=== PATIENT | female | born 1980 | race Caucasian/White ===

== ENCOUNTER → 2022-10-10 18:41 | Outpatient (CLI) | payer OTHER, SELFPAY ==
--- NOTE | 2022-10-10 | DI.MRI.S_ITS ---
PROCEDURE: MR FOOT RT WO CON INDICATIONS: BONE CYST/ PAIN TECHNIQUE: Noncontrast sagittal T1 spin echo and T2 fast spin echo with fat saturation, long-axis T1 spin echo and T2 fast spin echo with fat saturation, short-axis T1 spin echo and T2 fast spin echo with fat saturation through the forefoot. COMPARISON: None. FINDINGS: Image quality: Excellent. Bones and joints: There is mild midfoot and forefoot joint osteoarthritis with joint space narrowing, subchondral sclerosis . Nonspecific subcortical cystic changes are noted involving 5th metatarsal head, medial and lateral sesamoid bones of 1st metatarsal head and adjacent plantar aspect of 1st metatarsal head. Edema involving medial sesamoid bone of 1st metatarsal head is seen. No definite fracture line is seen. No new metatarsal stress fractures. No suspicious bony lesions. Soft tissues: The visualized plantar foot muscles demonstrate normal signal and bulk. Visualized flexor and extensor tendons appear intact, without tenosynovitis. The distal insertions of the peroneus brevis and longus tendons appear intact. The principal Lisfranc ligament appears intact. No soft tissue ganglion cysts or bursal fluid collections. Sagittal images demonstrate moderate grade partial-thickness tear involving medial sesamoid phalangeal ligament of 1st metatarsal head . No gross plantar plate tear in 2nd through 5th toes. IMPRESSION: 1. Midfoot and forefoot joint osteoarthritis. No acute fracture or dislocation. Nonspecific subcortical cystic changes involving 1st and 5th metatarsal head and sesamoid bones of 1st metatarsal head. 2. Mild edema involving medial sesamoid of 1st metatarsal head without discrete fracture line concerning for sesamoiditis. There is also low to moderate grade partial-thickness tear involving medial sesamoid phalangeal ligament of 1st MTP joint concerning for low to moderate grade turf toe injury. 3. Extensor and flexor tendons of midfoot and forefoot are intact. No soft tissue mass or drainable fluid collection. Lisfranc ligament is intact. Dictated by: Walter Cordero M.D. on 10/13/2022 at 10:25 Approved by: Walter Cordero M.D. on 10/13/2022 at 10:44
--- NOTE | 2022-10-10 | DI.MRI.S_ITS ---
PROCEDURE: MR ANKLE RT WO CON INDICATIONS: BONE CYST/ PAIN TECHNIQUE: Noncontrast sagittal T1 spin echo and T2 fast spin echo with fat saturation, axial proton density fast spin echo and T2 fast spin echo with fat saturation, coronal T1 spin echo and T2 fast spin echo with fat saturation through the ankle/hindfoot. COMPARISON: None. FINDINGS: Image quality: Excellent. Bones and joints: Mild midfoot and hindfoot joint osteoarthritic changes are seen with joint space narrowing and subchondral sclerosis No bone marrow contusions or fractures. No hindfoot coalitions. No osteochondral injuries of the talar dome. Small amount of tibiotalar joint effusion is seen, no gross loose bodies. Medial structures: The posterior tibialis tendon is thickened with small to moderate amount of fluid distending tendon sheath at the level of mid to distal talus and talonavicular joint. The flexor digitorum longus, and flexor hallucis longus tendons are intact. The posterior tibial neurovascular bundle appears normal within the tarsal tunnel, without extrinsic mass effect. The deltoid ligament and spring ligament are thickened. Lateral structures: The anterior talofibular ligament is thickened. The calcaneofibular, and posterior talofibular ligaments appear intact. More superiorly, the anterior and posterior tibiofibular ligaments appear thickened. The tibiofibular syndesmosis is normal in width at 2 mm or less. The peroneus longus and brevis tendons are thickened at the level of lateral malleolus extending to the level of mid to distal calcaneus. Adjacent bony peroneal tubercle and retrotrochlear prominence are normal in size. The sinus tarsi demonstrates normal fatty signal, without edema, fibrosis, or cyst formation. Visualized sinus tarsi components (cervical ligament, interosseous talocalcaneal ligament, roots of the inferior extensor retinaculum) appear normal. The calcaneonavicular and calcaneocuboid components of the bifurcate ligament appear intact. The dorsal calcaneocuboid ligament appears intact. Anterior structures: The tibialis anterior, extensor hallucis longus, and extensor digitorum longus tendons appear intact. The dorsal talonavicular ligament appears intact. Posterior and plantar structures: Achilles tendon is intact. Medial and lateral bands of the plantar fascia are of normal thickness. No abductor digiti quinti muscle atrophy to suggest Solitario neuropathy. IMPRESSION: 1. Mild midfoot and hindfoot joint osteoarthritis. No fracture or dislocation. No osteochondral injuries of talar dome. Small amount of tibiotalar joint effusion, no gross loose bodies. 2. Low to moderate grade tenosynovitis involving posterior tibialis tendon at the level of mid to distal talus and talonavicular joint. 3. Low-grade medial ankle ligament sprain. 4. Low to moderate grade sprain involving anterior talofibular ligament, anterior posterior tibial fibular ligaments. 5. Low to moderate grade tendinosis involving peroneus tendons at the level of lateral malleolus tip extending to the level of mid to distal calcaneus. Dictated by: Walter Cordero M.D. on 10/13/2022 at 10:44 Approved by: Walter Cordero M.D. on 10/13/2022 at 10:50
== END ==
PROVIDERS: PCP Family Medicine; Referring Provider Podiatrist; Visit Provider Podiatrist
DX: S93.524A Sprain of metatarsophalangeal joint of right lesser toe(s), initial encounter (principal); S93.491A Sprain of other ligament of right ankle, initial encounter; M65.861 Other synovitis and tenosynovitis, right lower leg; M19.071 Primary osteoarthritis, right ankle and foot; M85.671 Other cyst of bone, right ankle and foot; M79.671 Pain in right foot
CPT/HCPCS: 73718; 73721

== ENCOUNTER → 2023-01-25 14:12 | Outpatient (CLI) | payer OTHER, SELFPAY | PROVIDERS: PCP Family Medicine; Visit Provider Physician Assistant | DX: J02.9 Acute pharyngitis, unspecified (principal) | CPT/HCPCS: 87070 ==

== ENCOUNTER → 2023-02-02 08:57 | Outpatient (CLI) | payer OTHER, SELFPAY ==
--- NOTE | 2023-02-02 | DI.US.S_ITS ---
PROCEDURE: US PERIPH VENOUS UP EXTREM RT INDICATIONS: SWELLING TECHNIQUE: Real-time imaging, as well as color and pulse Doppler interrogation, was performed of the right upper extremity deep veins from the inferior neck to the antecubital fossa. COMPARISON: None. FINDINGS: The internal jugular vein, visualized portions of the subclavian vein, axillary, and brachial veins are free of intraluminal thrombus. Where physically possible, the veins are normally compressible. Color and pulse Doppler demonstrate normal intraluminal flow, with expected phasicity and pulsatility. Additional scanning of the cephalic and basilic veins of the superficial system demonstrates normal compressibility, without thrombus. No sonographic abnormality in the right forearm corresponding to area of erythema. IMPRESSION: 1. No findings of upper extremity deep venous thrombosis. 2. No sonographic abnormality in the right forearm corresponding to area of erythema. Dictated by: Fannie Hewitt M.D. on 02/02/2023 at 10:53 Approved by: Fannie Hewitt M.D. on 02/02/2023 at 10:56
== END ==
PROVIDERS: PCP Family Medicine; Referring Provider Physician Assistant; Visit Provider Physician Assistant
DX: M79.89 Other specified soft tissue disorders (principal)
CPT/HCPCS: 93971

== ENCOUNTER → 2024-02-01 06:37 | Outpatient (CLI) | payer OTHER, SELFPAY ==
--- NOTE | 2024-02-01 06:38 | DI.US.S_ITS ---
PROCEDURE: US PELVIC COMPLETE INDICATIONS: dysfunctional uterine bleeding TECHNIQUE: Real-time scanning was performed of the pelvic organs, with image documentation. Additional endovaginal scanning was necessary due to incomplete visualization of the adnexal and endometrial structures by transabdominal scanning. COMPARISON: None. FINDINGS: Uterus: 11 x 6 x 9 cm. This is borderline enlarged. Anteverted positioning. Endometrium measures 6 mm with IUD in place. Ovaries: Left ovary was not seen. Unremarkable right ovary measuring 5 cc. Other: No pathologic free fluid. IMPRESSION: Borderline enlarged uterus. The endometrium is within normal limits at 6 mm, with IUD in place. Unremarkable right ovary. Left ovary was not seen. Dictated by: Alexis Sharma M.D. on 02/01/2024 at 14:41 Approved by: Alexis Sharma M.D. on 02/01/2024 at 14:42
== END ==
LOC: US 06:37
PROVIDERS: PCP Family Medicine; Referring Provider Family Medicine; Visit Provider Family Medicine
DX: N93.8 Other specified abnormal uterine and vaginal bleeding (principal); Z97.5 Presence of (intrauterine) contraceptive device
CPT/HCPCS: 76830; 76856

== ENCOUNTER → 2024-05-02 17:00 | Outpatient (CLI) | payer OTHER, SELFPAY ==
--- NOTE | 2024-05-02 17:02 | DI.RAD.S_ITS ---
PROCEDURE: XR RIBS RT 2V INDICATIONS: RIB PAIN TECHNIQUE: <<2>> views of the ribs were acquired. COMPARISON: None. FINDINGS: Right lung Clear Right Pleural spaces: Normal-no effusions or pneumothorax. Bones and soft tissues: Right ribs unremarkable. IMPRESSION: Normal right ribs Dictated by: Alverto Gan M.D. on 05/03/2024 at 9:58 Approved by: Alverto Gan M.D. on 05/03/2024 at 10:00
--- NOTE | 2024-05-02 17:02 | DI.RAD.S_ITS ---
PROCEDURE: XR FOOT RT 2V INDICATIONS: FOOT PAIN TECHNIQUE: Two views of the right foot were acquired. COMPARISON: None. FINDINGS: Bones: Hammertoe deformities 2nd through 5th digits noted. Joints: The joint spaces are normal in width and alignment without arthritic change. Soft tissues: There is mild diffuse plantar soft tissue swelling IMPRESSION: Hammertoe deformities 2nd through 5th digits Mild plantar soft tissue swelling and Dictated by: Alverto Gan M.D. on 05/03/2024 at 9:57 Approved by: Alverto Gan M.D. on 05/03/2024 at 9:58
== END ==
PROVIDERS: PCP Family Medicine; Referring Provider Family Medicine; Visit Provider Family Medicine
DX: M20.41 Other hammer toe(s) (acquired), right foot (principal); M79.89 Other specified soft tissue disorders; M79.671 Pain in right foot
CPT/HCPCS: 71100; 73620